=== PATIENT | male | born 1995 | race Two or more races ===

== ENCOUNTER 2023-05-13 14:36 | Emergency (ER) | payer MEDICAID ==
[~2023-05-13] VITALS: Ht 180.3 cm; Wt 86.4 kg
[2023-05-13 14:40] VITALS: TEMP 98.7
[2023-05-13 15:18] VITALS: BP 130/77; PULSE 72; RESP 16
[2023-05-13] MEDS: ACETAMINOPHEN 500 MG TABLET PO ONE (15:56)
[2023-05-13] MEDS: PERTUSS(ACELL),DIPH,TET/PF 0.5 ML SYRINGE [ADULT] IM. ONE (15:58)
[2023-05-13] MEDS: LIDOCAINE 1% 10 ML VIAL SQ ONE (15:59)
[2023-05-13] MEDS: BACITRACIN 0.9 GM PACKET OINTMENT TP ONE (16:03)
[2023-05-13] MEDS ORDERED: ACET-66 PO (16:06)
[2023-05-13] MEDS ORDERED: IBUP-1554 PO (16:06)
== END 2023-05-13 16:22 | disposition home or self-care (01) ==
LOC: EMS 14:37
DX: S01.81XA Laceration without foreign body of other part of head, initial encounter (principal); W01.0XXA Fall on same level from slipping, tripping and stumbling without subsequent striking against object, initial encounter; Y93.89 Activity, other specified; Y92.89 Other specified places as the place of occurrence of the external cause; Y99.8 Other external cause status
CPT/HCPCS: 12011; 70150; 90471; 90715; 99283

== ENCOUNTER 2023-05-28 18:34 | Emergency (ER) | payer MEDICAID ==
[~2023-05-28] VITALS: Ht 180.3 cm; Wt 86.0 kg
[~2023-05-28 18:34] MED LIST: ACET-66 PO; IBUP-1554 PO
[2023-05-28 18:40] VITALS: BP 125/68; PULSE 69; RESP 20; TEMP 98
== END 2023-05-28 19:14 | disposition home or self-care (01) ==
LOC: EMS 18:38
DX: S01.511D Laceration without foreign body of lip, subsequent encounter (principal); Z48.02 Encounter for removal of sutures; X58.XXXD Exposure to other specified factors, subsequent encounter
CPT/HCPCS: 99281; Z7502